=== PATIENT | male | born 1975 | race Caucasian/White ===

== ENCOUNTER 2019-03-26 20:45 | Emergency (ER) | payer OTHER ==
--- NOTE | 2019-03-26 22:17 | EDM.PDOC ---
ED HPI GENERAL MEDICAL PROBLEM - General Chief Complaint: Lower Extremity Injury/Pain Stated Complaint: FOOT INJURY Time Seen by Provider: 03/26/19 22:16 Source of Information: Reports: Patient History Limitations: Reports: No Limitations - History of Present Illness INITIAL COMMENTS - FREE TEXT/NARRATIVE: 43-year-old male presents to the ED with an acute injury to his right foot lateral aspect. He was walking down a slope on hard ground and felt a pop and sudden burning tearing pain in the lateral aspect of his right foot. She recurred while he was at work earlier today. 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 He usually wears a well laced up , steel toed work boot. Patient feels pain in the plantar surface of his lateral foot as well. He has no pain in his ankle. He states that he did not fall or notably invert the foot. Patient is now walking with a very definitive limp. Onset: Today Onset Date: 03/26/19 Onset Time: 11:00 Duration: Hour(s): Location: Reports: Lower Extremity, Right Quality: Reports: Ache (Right lateral midfoot and plantar surface of the lateral foot), Throbbing Severity: Moderate Improves with: Reports: Rest Worsens with: Reports: Movement (Weightbearing and walking make it much worse.) Context: Reports: Other (Spontaneous occurrence while walking down and slight inclined slope in the workplace. He doesn't believe that he inverted the foot.) . Denies: Activity, Exercise, Lifting, Sick Contact, Trauma Associated Symptoms: Reports: No Other Symptoms Treatments LEVERMAN: Reports: NSAIDS (Motrin) Right Foot Pain Score (Numeric/FACES): 5 - Related Data Allergies Allergy/AdvReac Type Severity Reaction Status Date / Time No Known Allergies Allergy Verified 03/26/19 21:02 Home Meds: Home Meds . [No Known Home Meds] 03/26/19 [History] Past Medical History Cardiovascular History: Reports: Blood Clots/VTE/DVT Social & Family History - Tobacco Use Smoking Status *Q: Never Smoker - Caffeine Use Caffeine Use: Reports: None - Recreational Drug Use Recreational Drug Use: No - Living Situation & Occupation Living situation: Reports: Occupation: Employed Review of Systems - Review of Systems Review Of Systems: See Below Constitutional: Reports: No Symptoms Eyes: Reports: No Symptoms Ears: Reports: No Symptoms Nose: Reports: No Symptoms Mouth/Throat: Reports: No Symptoms Respiratory: Reports: No Symptoms Cardiovascular: Reports: No Symptoms GI/Abdominal: Reports: No Symptoms Genitourinary: Reports: No Symptoms Musculoskeletal: Reports: Foot Pain (Right lateral foot pain. See history of present illness) Skin: Reports: No Symptoms Neurological: Reports: No Symptoms Psychiatric: Reports: No Symptoms ED EXAM, GENERAL - Physical Exam Exam: See Below Exam Limited By: No Limitations General Appearance: Alert, WD/WN, No Apparent Distress, Other (Vital signs are all normal.) Peripheral Pulses: 2+: Posterior Tibial (L), Posterior Tibial (R), Dorsalis Pedis (L), Dorsalis Pedis (R) Extremities: Other (Examination was limited to the right foot. Mild swelling over the fifth metatarsal head and pain just distal to the fifth metatarsal head. The ankle bones are intact. Inverting the foot exacerbates the pain. Radiates up along the anterior aspect of the lateral malleolus into the distal fibula area. Examination suggests peroneus brevis tendon strain) Neurological: Alert, Oriented, CN II-XII Intact, Normal Cognition, Other. No: Normal Gait Psychiatric: Normal Affect, Normal Mood (Marked limping gait.) Course - Vital Signs Last Recorded V/S: Last Vital Signs Temp 36.5 C 03/26/19 20:59 Pulse 73 03/26/19 20:59 Resp 16 03/26/19 20:59 BP 142/95 H 03/26/19 20:59 Pulse Ox 96 03/26/19 20:59 - Orders/Labs/Meds Orders: Active Orders 24 hr Category Date Time Status Foot Comp Min 3V Rt [CR] Stat Exams 03/26/19 21:21 Taken - Radiology Interpretation Free Text/Narrative:: 43-year-old male presents to the ED for evaluation of acute pain in his right lateral foot. Indicates that at work earlier today he was walking down a slope the side of a hill. No inversion injury to his knowledge but he felt a sudden pop tearing sensation in his right lateral foot. Subsequent to the the pain has increased as the day has gone on and ease now walking with a significant limp. He found it difficult to operate his truck after injury using the brake and accelerator pedal. He has pain in the lateral plantar aspect of his right foot as well. Examination reveals pain over the fifth metatarsal head and distal to the fifth metatarsal head and inferior aspect of the lateral plantar foot. Inverting the foot exacerbated the pain compatible with a peroneus brevis tendon strain. Plan will be x-ray the foot to make sure there is no occult fracture - Re-Assessments/Exams Free Text/Narrative Re-Assessment/Exam: 03/26/19 22:55: X-ray of the right foot reveals no fractures. No cyst therefore his peroneus brevis tendinitis or tendon strain. Advise of the foot needs a rest for about 3 days. His wrap applied to the foot in the ED and he can ice the area over the Micha wrap for one half hour of every 4 hours tomorrow. Motrin 6 mg every 6 hours as needed for pain relief. Suggest he may return to work with a well laced up boot wearing the Micha wrap for support. He is to expect pain in this area for a minimum of 10 days and likely be 14 days before heals adequately. To invert the foot or ankle again. Departure - Departure Time of Disposition: 22:46 Disposition: Home, Self-Care 01 Condition: Fair Clinical Impression: Tendinitis of right peroneus brevis tendon - Discharge Information *PRESCRIPTION DRUG MONITORING PROGRAM REVIEWED*: Not Applicable *COPY OF PRESCRIPTION DRUG MONITORING REPORT IN PATIENT [facility]: Not Applicable Instructions: Foot Sprain Referrals: Juany Stevens PA-C [Primary Care Provider] - Forms: ED Department Discharge, ED Return to Work/School Form Additional Instructions: Evaluation the emergency room today in regards to acute onset of pain lateral aspect of your right foot. Occurred while walking down a incline or slope. Marked pain with every step and particularly at work climbing ladders on the truck. So difficulty in operating the vehicle by accelerated her and break pedal. Examination reveals marked tenderness over the fifth metatarsal head and lateral foot with slight swelling. X-rays of the foot do not reveal any broken bones or avulsion fractures. Diagnosis is peroneus brevis tendon strain. This results in localized swelling and pain for the next 10-12 days. Asked Micha wrap on during the day and off at night. Ice pack to the area one half hour out of every 4 hours for the first 2 days of injury. And rest the foot is much as possible. Asked off work for the next 3 days. Return with a well laced up work boot with Micha wrap in place during the day. Relief with Motrin 600 mg every 6 hours as needed Sepsis Event Note - Evaluation Sepsis Screening Result: No Definite Risk - Focused Exam Vital Signs: Vital Signs Temp Pulse Resp BP Pulse Ox 03/26/19 20:59 36.5 C 73 16 142/95 H 96 Date Exam was Performed: 03/26/19 Time Exam was Performed: 23:09 - My Orders Last 24 Hours: My Active Orders 03/26/19 21:21 Foot Comp Min 3V Rt [CR] Stat - Assessment/Plan Last 24 Hours: My Active Orders 03/26/19 21:21 Foot Comp Min 3V Rt [CR] Stat
--- NOTE | 2019-03-27 11:49 | CR ---
Right foot: 4 views of the right foot were obtained. Comparison: No previous foot exam. Spur is noted at the attachment of the Achilles tendon to the calcaneus. Small cyst is noted at the base of the distal phalanx of the first toe compatible with slight degenerative change. There is an old chip fracture in the same area which is ununited. No acute fracture, dislocation or other bony abnormality is seen. Impression: 1. Several chronic findings as noted above. 2. Nothing acute is seen. Diagnostic code #2 This report was dictated in [place] Standard Time
== END 2019-03-26 23:07 | disposition home or self-care (01) ==
LOC: JD.ED 20:45
DX: M76.71 Peroneal tendinitis, right leg (principal)
CPT/HCPCS: 73630-26-RT; 73630-RT; 99282; 99283-25